=== PATIENT | male | born 1985 | race Caucasian/White ===

== ENCOUNTER 2018-05-14 14:34 | Emergency (ER) | payer SELFPAY ==
[2018-05-14] MEDS ORDERED: Lidocaine 2% 20 ML MDV INFILT ONE (14:35)
[2018-05-14] MEDS ORDERED: Ketorolac 60 MG/2 ML SDV IM ONE (14:53)
[2018-05-14] MEDS ORDERED: Morphine 2 MG/ML Syringe IM ONE (14:53)
[2018-05-14] MEDS ORDERED: cefTRIAXone 1,000 MG VIAL IM ONE (14:53)
--- NOTE | 2018-05-14 14:55 | EDM.PDOC ---
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 Pt noticed imitate pain at his fingers 3+4 of his right hand with minor bleed. He had pain when moving his hand and fingers as well. Pt denied any other acute medical issues at this time. BP 149/99 pulse 87 RR 18 Pulse ox 100% on RA. Temp 36.8 Onset Date: 05/14/18 Onset Time: 13:00 Duration: Hour(s):, Constant Location: Reports: Upper Extremity, Right Quality: Reports: Ache, Dull Severity: Mild Improves with: Reports: Rest Worsens with: Reports: Movement Context: Reports: Trauma Associated Symptoms: Reports: No Other Symptoms right hand Pain Score (Numeric/FACES): 10 - Related Data Allergies Allergy/AdvReac Type Severity Reaction Status Date / Time No Known Allergies Allergy Verified 05/14/18 14:43 Home Meds: Home Meds Cephalexin [Keflex] 500 mg PO Q6HR #40 capsule 05/14/18 [Rx] ED ROS GENERAL - Review of Systems Review Of Systems: See Below Constitutional: Reports: No Symptoms HEENT: Reports: No Symptoms Respiratory: Reports: No Symptoms Cardiovascular: Reports: No Symptoms Endocrine: Reports: No Symptoms GI/Abdominal: Reports: No Symptoms : Reports: No Symptoms Musculoskeletal: Reports: No Symptoms Skin: Reports: Wound (fingers 3+4 right hand) Neurological: Reports: No Symptoms Psychiatric: Reports: No Symptoms Hematologic/Lymphatic: Reports: No Symptoms Immunologic: Reports: No Symptoms ED EXAM, SKIN/RASH Exam: See Below Exam Limited By: No Limitations General Appearance: Alert, WD/WN, Mild Distress Eye Exam: Bilateral Eye: Normal Inspection Ears: Normal External Exam Nose: Normal Inspection Throat/Mouth: Normal Inspection Head: Atraumatic, Normocephalic Neck: Normal Inspection, Supple, Non-Tender Respiratory/Chest: No Respiratory Distress, Lungs Clear, Normal Breath Sounds, No Accessory Muscle Use, Chest Non-Tender Cardiovascular: Normal Peripheral Pulses, Regular Rate, Rhythm, No Edema, No Gallop, No JVD, No Murmur, No Rub Peripheral Pulses: 2+: Radial (R) GI/Abdominal: Normal Bowel Sounds, Soft, Non-Tender, No Organomegaly, No Distention, No Abnormal Bruit, No Mass, Pelvis Stable (Male) Exam: Deferred Rectal (Males) Exam: Deferred Back Exam: Normal Inspection, Full Range of Motion Extremities: Normal Range of Motion, No Pedal Edema, Normal Capillary Refill, Other (Lacerations fingers 3+4) Neurological: Alert, Oriented, CN II-XII Intact, Normal Cognition, Normal Gait, Normal Reflexes, No Motor/Sensory Deficits Psychiatric: Normal Affect, Normal Mood Skin: Wound/Incision (Laceratons finger 3+4 distal phalanx) Lymphatic: No Adenopathy ED SKIN PROCEDURES - Laceration/Wound Repair Right Digit - 4th (Ring) Lac/Wound length In cm: 2.5 (for both 3+4th fingers, distal phalanx) Appearance: Subcutaneous, Stellate, Clean Distal NVT: Neuro & Vascular Intact, No Tendon Injury Anesthetic Type: Local Local Anesthesia - Lidocaine (Xylocaine): 2% Plain Local Anesthetic Volume: 3cc Skin Prep: Providone-Iodine (Betadine) Saline Irrigation (cc's): 4 Exploration/Debridement/Repair: Wound Explored, In a Bloodless Field, Explored to Base Closed with: Sutures Suture Size: 4-0 # of Sutures: 6 (total for both fingers) Sterile Dressing Applied: Nurse Tetanus Status Addressed: Yes (given today) Complications: No Course - Vital Signs Text/Narrative:: 33 years old w m came to the ed by PC after a gear fell onto his right hand 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 Pt noticed imitate pain at his fingers 3+4 of his right hand with minor bleed. He had pain when moving his hand and fingers as well. Pt denied any other acute medical issues at this time. BP 149/99 pulse 87 RR 18 Pulse ox 100% on RA. Temp 36.8 PE: WNWD W M with injuries at finger 3+4 distal phalanx right hand Imaging: Right hand/fingers: NAD, official report is pending Procedure: Please see note above Impression: Lacerations finger 3 and 4 right hand, repaired in the ED Tx: wound care, TD, morphoine, Rocephine, Toradol. Reexam: Improved Plan: D/C with instructions Last Recorded V/S: Last Vital Signs Temp 36.7 C 05/14/18 16:08 Pulse 90 05/14/18 16:08 Resp 16 05/14/18 16:08 BP 136/93 H 05/14/18 16:08 Pulse Ox 100 05/14/18 16:08 - Orders/Labs/Meds Orders: Active Orders 24 hr Category Date Time Status Vaccines to be Administered [RC] PER UNIT ROUTINE Care 05/14/18 15:08 Active Hand Comp Min 3V Rt [CR] Stat Exams 05/14/18 14:51 Taken Meds: Medications Discontinued Medications Generic Name Dose Route Start Last Admin Trade Name Freq PRN Reason Stop Dose Admin Ceftriaxone Sodium 1,000 mg 05/14/18 14:53 05/14/18 15:12 Rocephin IM 05/14/18 14:54 1,000 mg ONETIME ONE Administration Diphtheria/Tetanus/Acell Pertussis 0.5 ml 05/14/18 15:08 05/14/18 15:13 Adacel IM 05/14/18 15:09 0.5 ml .ONCE ONE Administration Ketorolac Tromethamine 60 mg 05/14/18 14:53 05/14/18 15:12 Toradol IM 05/14/18 14:54 60 mg ONETIME ONE Administration Morphine Sulfate 2 mg 05/14/18 14:53 05/14/18 15:13 Morphine IM 05/14/18 14:54 2 mg ONETIME ONE Administration Departure - Departure Time of Disposition: 15:51 Disposition: Home, Self-Care 01 Condition: Good Clinical Impression: Laceration of fingers without complication Qualifiers: Encounter type: initial encounter Qualified Code(s): S61.219A - Laceration without foreign body of unspecified finger without damage to nail, initial encounter - Discharge Information *PRESCRIPTION DRUG MONITORING PROGRAM REVIEWED*: Yes *COPY OF PRESCRIPTION DRUG MONITORING REPORT IN PATIENT JUDAH: Yes Prescriptions: Cephalexin [Keflex] 500 mg PO Q6HR #40 capsule Instructions: Ketorolac injection, Ceftriaxone injection, Morphine injection solution, Sutured Wound Care, [id number], VIS, Tetanus, Diphtheria, and Pertussis (Tdap) - CDC (11/13/2014) Referrals: PCP,None [Primary Care Provider] - Forms: ED Department Discharge Additional Instructions: Please apply Neosporin to wound twice daily, take the antibiotics as recommended , wound check in 2-3 days at clinic, suture removal in 10-14 days at clinic, call for appt. Please avoid flexing your fingertips. Pleas come back if your symptoms get worse acutely Tylenol or Ibuprofen as needed for pain. - My Orders Last 24 Hours: My Active Orders 05/14/18 14:51 Hand Comp Min 3V Rt [CR] Stat 05/14/18 15:08 Vaccines to be Administered [RC] PER UNIT ROUTINE - Assessment/Plan Last 24 Hours: My Active Orders 05/14/18 14:51 Hand Comp Min 3V Rt [CR] Stat 05/14/18 15:08 Vaccines to be Administered [RC] PER UNIT ROUTINE
[2018-05-14] MEDS ORDERED: Diphtheria,Pertussis(Acell),Tetanus Vaccine 0.5 ML SDV IM ONE (15:08)
== END 2018-05-14 16:08 | disposition home or self-care (01) ==
LOC: FB.ED 14:34
DX: S61.212A Laceration without foreign body of right middle finger without damage to nail, initial encounter (principal); S61.214A Laceration without foreign body of right ring finger without damage to nail, initial encounter; W19.XXXA Unspecified fall, initial encounter
CPT/HCPCS: 12001; 73130; 90472; 90715; 96372; 99283; J0696; J1885; J2270; 90471